=== PATIENT | male | born 1945 | race Caucasian/White ===

== ENCOUNTER → 2019-06-18 11:42 | Outpatient (CLI) | payer OTHER, SELFPAY ==
--- NOTE | 2019-06-18 11:48 | ECHOCS_ITS ---
Reason For Study: CABG/CAD Procedure This was a 2D Doppler, Color Flow transthoracic echocardiogram. The study was technically difficult. Contrast injection was performed. Exam performed in department. Left Ventricle Mild concentric left ventricular hypertrophy. The estimated ejection fraction is 65 %. Septal motion consistent with IVCD. No regional wall motion abnormalities noted. Right Ventricle Normal size and thickness. Normal systolic function. Atria The left atrium is severely enlarged. The right atrium is mildly enlarged. Normal atrial septum. Mitral Valve The mitral valve is structurally normal. No prolapse or stenosis seen. Trivial mitral valve insufficiency. Tricuspid Valve Normal tricuspid valve. Trivial tricuspid valve insufficiency. Right ventricular systolic pressure estimated to be 30 mmHg. Aortic Valve Trisinus/trileaflet aortic valve. Moderate diffuse aortic valve thickening. Mild diffuse aortic valve calcification. Mild aortic stenosis. Pulmonic Valve The pulmonic valve is not well visualized. Great Vessels Calcified aortic root. Normal arch. Normal inferior vena cava. Inferior vena cava collapse with sniff. Pericardium/Pleural No pericardial effusion. Medication 22 gauge I.V. with prn adaptor inserted into right arm. Diluted definity 3ml given slow IV push to enhance endocardial definition. MMode/2D Measurements & Calculations LVIDd: 4.0 cm IVSd: 1.3 cm LVOT diam: 2.1 cm LVIDs: 2.8 cm LVPWd: 1.2 cm FS: 29.2 % LVOT area: 3.5 cm2 LA dimension: 5.3 cm LAV(MOD-bp): 82.4 ml Aortic Valve Planimetry: 2.3 cm2 LAV(MOD-bp) Indexed: 34.4 ml/m2 LAV(MOD-sp2): 74.9 ml LAV(MOD-sp4): 88.0 ml LA A4 area: 27.0 cm2 RA A4 area: 20.1 cm2 Doppler Measurements & Calculations MV E max hoang: 79.6 cm/sec Lat Peak E' Hoang: 10.3 cm/sec Med Peak E' Hoang: 7.5 cm/sec E/E' lat: 7.8 E/E' med: 10.6 MV V2 max: 92.0 cm/sec MV P1/2t max hoang: 87.6 cm/sec Ao V2 max: 130.6 cm/sec MV max P.4 mmHg MV P1/2t: 112.5 msec Ao max P.8 mmHg MV V2 mean: 45.1 cm/sec MV dec slope: 228.1 cm/sec2 Ao V2 mean: 84.1 cm/sec MV mean P.98 mmHg Ao mean P.4 mmHg MV V2 VTI: 26.1 cm MVA(P1/2t): 2.0 cm2 Ao V2 VTI: 23.6 cm MVA(VTI): 2.4 cm2 DANETTE(I,D): 2.6 cm2 DANETTE(V,D): 2.1 cm2 LV V1 max: 77.8 cm/sec SV(LVOT): 61.7 ml PA V2 max: 80.9 cm/sec LV V1 max P.4 mmHg LV V1 mean P.1 mmHg LV V1 mean: 48.7 cm/sec LV V1 VTI: 17.7 cm TR max hoang: 194.5 cm/sec TR max P.1 mmHg Interpretation Summary Mild concentric left ventricular hypertrophy. The estimated ejection fraction is 65 %. The left atrium is severely enlarged. The right atrium is mildly enlarged. Trivial mitral valve insufficiency. Trivial tricuspid valve insufficiency. Right ventricular systolic pressure estimated to be 30 mmHg. Mild aortic stenosis. The study was technically difficult. There is no comparison study available. Contrast injection was performed. Ordering Physician: Amilcar Evans Referring Physician: Amilcar Evans Performed By: Viktor Whalen RCS
== END ==
PROVIDERS: Family Provider Radiologic Technologist Bone Densitometry; PCP Radiologic Technologist Bone Densitometry; Referring Provider Orthopaedic Surgery; Visit Provider Orthopaedic Surgery
DX: I25.10 Atherosclerotic heart disease of native coronary artery without angina pectoris (principal); Z95.5 Presence of coronary angioplasty implant and graft; I73.9 Peripheral vascular disease, unspecified
CPT/HCPCS: 93306; 93922; Q9957; A4216; C8929

== ENCOUNTER → 2019-07-30 08:30 | Outpatient (CLI) | payer OTHER, SELFPAY ==
--- NOTE | 2019-07-30 08:36 | EKG12_ITS ---
Test Reason : ATRIAL FIBRILLATION Blood Pressure : / mmHG Vent. Rate : 068 BPM Atrial Rate : 068 BPM P-R Int : 000 ms QRS Dur : 080 ms QT Int : 426 ms P-R-T Axes : 000 033 254 degrees QTc Int : 452 ms Demand pacemaker; interpretation is based on intrinsic rhythm Atrial fibrillation with premature ventricular or aberrantly conducted complexes ST & T wave abnormality, consider inferior ischemia or digitalis effect ST & T wave abnormality, consider anterolateral ischemia or digitalis effect Abnormal ECG Confirmed by JESSIE MONTELONGO ([id number]), legal editor LEATHA CHAVEZ [id number]) on 07/30/2019 3:07:19 PM Referred By: Amiclar Evans Confirmed By:JESSIE MONTELONGO
== END ==
PROVIDERS: PCP Radiologic Technologist Bone Densitometry; Referring Provider Orthopaedic Surgery; Visit Provider Orthopaedic Surgery
DX: I48.91 Unspecified atrial fibrillation (principal)
CPT/HCPCS: 93005